=== PATIENT | male | born 1960 | race Caucasian/White ===

== ENCOUNTER 2017-06-26 11:34 | Emergency (ER) | payer MEDICAID ==
[~2017-06-26] VITALS: Ht 185.4 cm; Wt 85.7 kg
[~2017-06-26 11:34] MED LIST: AFRIN NASAL SPR30 ML NASAL; NKM
[2017-06-26] MEDS ORDERED: CEPHALEXIN500 MG ORAL (12:05)
[2017-06-26] MEDS ORDERED: KENALOG 0.025%15 GM APPLIC (12:05)
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
[2017-06-26 12:15] VITALS: BP 154/79
[2017-06-26 12:25] VITALS: BP 154/79
== END 2017-06-26 12:25 | disposition home or self-care (01) ==
LOC: EMR 11:55
DX: L25.8 Unspecified contact dermatitis due to other agents (principal); L03.032 Cellulitis of left toe; L03.031 Cellulitis of right toe
CPT/HCPCS: 99283

== ENCOUNTER 2019-09-12 20:14 | Emergency (ER) | payer MEDICAID ==
[~2019-09-12] VITALS: Ht 182.9 cm; Wt 81.6 kg
[~2019-09-12 20:14] MED LIST changes: +CEPHALEXIN500 MG ORAL; +KENALOG 0.025%15 GM APPLIC
[2019-09-12 20:20] VITALS: BP 153/96
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
--- NOTE | 2019-09-12 20:23 | NUR ---
ED Nurse Note: ERMD at bedside
[2019-09-12] MEDS ORDERED: CEPHALEXIN500 M1 ORAL (20:29)
--- NOTE | 2019-09-12 20:29 | Emergency Room Report ---
History of Present Illness General Chief Complaint: Male Urogenital Problems Source: Patient Present Illness HPI 58-year-old male presents with dysuria x7 days no fevers no chills, he endorses some suprapubic fullness no known aggravating relieving factors had a sexual encounter 1 month ago, no discharge patient presents for evaluation Allergies: Coded Allergies: No Known Allergies (Unverified , 10/27/12) Patient History Past Medical History: see triage record Social History: Reports: smoking, alcohol use Reviewed Nursing Documentation: PMH: Agreed; PSxH: Agreed Nursing Documentation-PMH Past Medical History: No Stated History Review of Systems All Other Systems: negative except mentioned in HPI Physical Exam Vital Signs Date Time Temp Pulse Resp B/P (MAP) Pulse Ox O2 Delivery O2 Flow Rate FiO2 09/12/19 20:17 98.4 82 14 153/96 (115) 98 Room Air General Appearance: well appearing, no apparent distress Head: normocephalic, atraumatic ENT: hearing grossly normal, normal voice Neck: full range of motion, supple Respiratory: no respiratory distress, speaking full sentences Gastrointestinal: non tender, soft Neurologic: alert, normal gait Psychiatric: mood/affect normal Skin: no rash Medical Decision Making Diagnostic Impression: Primary Impression: UTI (urinary tract infection) Qualified Codes: N30.00 - Acute cystitis without hematuria ER Course 58-year-old male presents with possible UTI versus STD will treat for STDs, referral to STD clinics were given We will also treat for UTI disposition home with return precautions follow-up with PCP Last Vital Signs Date Time Temp Pulse Resp B/P (MAP) Pulse Ox O2 Delivery O2 Flow Rate FiO2 09/12/19 20:17 98.4 82 14 153/96 (115) 98 Room Air Disposition: HOME, SELF-CARE Condition: Stable Scripts Cephalexin* (KEFLEX*) 500 Mg Tablet 500 MG ORAL EVERY 6 HOURS, #28 CAP Prov: Prakash Jean-Baptiste MD 09/12/19 Referrals: [facility] Patient Instructions: Urinary Tract Infection Additional Instructions: The patient was provided with discharge instructions, notified to follow-up with a primary care doctor and or specialist in the next 24-48 hours, and to return to the ED if they have worsening of their symptoms. Please note that this report is being documented using [employer] technology. This can lead to erroneous entry secondary to incorrect interpretation by the dictating instrument. Prakash Jean-Baptiste MD Sep 12, 2019 20:29
[2019-09-12] MEDS ORDERED: Azithromycin 250mg tab ORAL ONE (20:30)
[2019-09-12] MEDS ORDERED: Lidocaine 1% MPF 10mg/ml 5ml INJ ONE (20:30)
[2019-09-12] MEDS ORDERED: cefTRIAXone 500mg Inj IM ONE (20:30)
--- NOTE | 2019-09-12 20:32 | NUR ---
ED Nurse Note: All medications administered, pt tolerated well. No adverse reactions noted. NO s/s of distress noted.
--- NOTE | 2019-09-12 20:57 | NUR ---
ER DISCHARGE NOTE: Patient is cleared to be discharged home per ERMD, pt is aox4, on room air, with stable vital signs. pt was given dc and prescription instructions, pt was able to verbalize understanding, pt id band removed. pt is able to ambulate with steady gait. pt took all belongings.
[2019-09-12 20:59] LABS: APPEARANCE,URINE CLOUDY; BILIRUBIN, URINE NEGATIVE (NEGATIVE); GLUCOSE, URINE (UA) NEGATIVE (NEGATIVE); KETONES,URINE NEGATIVE (NEGATIVE); LEUKOCYTE ESTERASE ,URINE 3+ (NEGATIVE); NITRITE,URINE POSITIVE (NEGATIVE); PH,URINE 8 (4.5-8.0); PROTEIN,URINE 3+ (NEGATIVE); UROBILINOGEN,URINE 4 MG/DL (0.0-1.0)
[2019-09-12 21:05] LABS: COLOR,URINE YELLOW
== END 2019-09-12 20:57 | disposition home or self-care (01) ==
LOC: EMR 20:57
DX: N30.00 Acute cystitis without hematuria (principal)
CPT/HCPCS: 81003; 87086; 96372; 96374; J0696; Q0144; Z7502; 99284